=== PATIENT | male | born 1980 | race Caucasian/White ===

== ENCOUNTER → 2016-11-15 | Outpatient (CLI) | payer OTHER ==
--- NOTE | 2016-11-15 11:24 | KCIC ---
PROCEDURE MR of the left knee HISTORY Left knee pain and swelling for 1 month. No known injury. TECHNIQUE Routine multiplanar sequences are obtained. COMPARISON None FINDINGS No evidence of a medial meniscal tear. No evidence of a lateral meniscal tear. Anterior and posterior cruciate ligaments are intact. Medial collateral ligament is intact. Iliotibial band unremarkable. Fibular collateral ligament, biceps femoris tendon and popliteus tendon are intact. The extensor mechanism is intact. Trace joint effusion. No acute articular cartilage defect. No evidence of osteochondral loose body. Subcutaneous fluid and edema along the anterior knee, centered at the patellar tendon. No dominant organized fluid collection is seen. No bone lesion or acute fracture. IMPRESSION 1. No meniscal tear or internal derangement. 2. Moderate prepatellar fluid and edema with swelling, consider bursitis, hematoma or nonspecific inflammatory etiology, depending on clinical correlation. Electronically signed by: Flakito Landis MD (Nov 15, 2016 11:23:41)
== END | disposition home or self-care (01) ==
LOC: KCIC MRI 10:00
PROVIDERS: ATTEND Family Medicine
DX: M25.562 Pain in left knee (principal); M25.461 Effusion, right knee
CPT/HCPCS: 73721

== ENCOUNTER → 2020-04-13 | Outpatient (CLI) | payer OTHER ==
[~2020-04-13] MED LIST: APIX2.5T PO; HYDR-3165 PO; IBUP-1060 PO
== END | disposition home or self-care (01) ==
LOC: LAB 14:49
PROVIDERS: ATTEND Orthopaedic Surgery
DX: Z01.812 Encounter for preprocedural laboratory examination (principal); Z20.828 Contact with and (suspected) exposure to other viral communicable diseases
CPT/HCPCS: 87426; U0003

== ENCOUNTER 2020-04-14 07:28 | Day surgery (SDC) | payer OTHER ==
[~2020-04-14] VITALS: Ht 184.2 cm; Wt 99.3 kg
[~2020-04-14 07:28] MED LIST changes: -APIX2.5T PO; -HYDR-3165 PO; +IV RINGERS,LACTATED 1000ML 1,000 ML IV SCH
[2020-04-14] MEDS ORDERED: fentaNYL PF VIAL 100 MCG/2 ML VIAL IV PRN ×2 (07:30)
[2020-04-14] MEDS ORDERED: PROCHLORPERAZINE 10 MG/2 ML VIAL. IV PRN (07:30)
[2020-04-14] MEDS ORDERED: ONDANSETRON PF 4 MG/2 ML VIAL. IV PRN (07:30)
[2020-04-14] MEDS ORDERED: HYDROmorphone 2 MG/ML VIAL IV PRN (07:30)
[2020-04-14] MEDS ORDERED: MORPHINE SULFATE 2 MG/ML VIAL. IV PRN (07:30)
[2020-04-14] MEDS ORDERED: LIDOCAINE 1% PF 2 ML VIAL. ID PRN (07:30)
[2020-04-14] MEDS ORDERED: DEXAMETHASONE SOD PHOS 4 MG/ML VIAL ONE (08:18)
[2020-04-14] MEDS ORDERED: SEVOFLURANE 61 TO 120 MINUTES. IH ONE (08:18)
[2020-04-14] MEDS ORDERED: LIDOCAINE 2% PF 5 ML VIAL. ONE (08:18)
[2020-04-14] MEDS ORDERED: ONDANSETRON PF 4 MG/2 ML VIAL. ONE (08:18)
[2020-04-14] MEDS ORDERED: MIDAZOLAM HCL/PF 2 MG/2 ML VIAL. ONE (08:18)
[2020-04-14] MEDS ORDERED: fentaNYL PF VIAL 100 MCG/2 ML VIAL ONE (08:18)
[2020-04-14] MEDS ORDERED: PROPOFOL 10 MG/ML (20ML) VIAL. IV ONE (08:18)
[2020-04-14] MEDS ORDERED: BUPIVACAINE-EPI 0.5%-1:200000 MPF 30 ML VIAL. ONE (09:19)
[2020-04-14] MEDS ORDERED: HYDR-3165 PO (10:09)
--- NOTE | 2020-04-14 10:10 | DISCH ---
DISCHARGE INSTRUCTIONS Condition on Discharge Condition on Discharge: Stable Activity After Discharge Activity Instructions for Disc: Progressive ambulation Weight Bearing Status after Di: As tolerated Diet after Discharge Diet after Discharge: Regular Wound Incision Care Wound/Incision Care: Change dressing (Remove dressing in 2 days may then shower no soaking in tub or pool until sutures removed) Contacting the after DC Call your doctor for: Concerns you may have Follow-Up Follow up with: Dr. Yee 10 days STU YEE MD Apr 14, 2020 10:10
[2020-04-14] MEDS ORDERED: APIX2.5T PO (10:11)
[2020-04-14] MEDS ORDERED: HYDROcodone/APAP 7.5/325MG 1 TAB TABLET PO ONE (11:00)
[2020-04-14 12:00] VITALS: BP 139/77
--- NOTE | 2020-04-14 12:15 | PDOC4 ---
Operative Note Operative Note Date of surgery: 04/14/2020 Preoperative diagnosis: Left knee medial meniscus tear Postoperative diagnosis: Same with displaceable posterior horn left medial meniscus tear and medial parapatellar plica Operative procedure: Left knee arthroscopy partial medial meniscectomy and excision medial parapatellar plica Surgeon: Joselito Anesthesia: General Estimated blood loss: 5 cc Complications: None Operative indications: Please see my preoperative clinic note for detailed operative indications and note that we had covered the possibility of continued pain infection blood clots nerve or blood vessel damage medical or other anesthetic complications among others. We talked about postoperative Eliquis due to his history of previous DVT and pulmonary embolism for a planned 2-week course postoperatively and specifically what to watch out for in terms of postoperative swelling and symptoms etc. All his questions were answered he agrees to proceed with surgical evaluation and treatment. Operative text: Patient was identified procedure verified patient placed in the supine position on the operating table. After adequate amounts of general anesthesia were administered the left lower extremity was prepped and draped in standard sterile fashion with a thigh tourniquet. After timeout was performed patient procedure identified and verified, the left lower extremity was exsanguinated by Esmarch bandage tourniquet inflated to 300 mmHg a lateral portal was established medial portal established using spinal needle localization and the knee joint was systematically examined. Patellofemoral articulation was noted to be in good condition he did have a medial patellar plica which was rubbing on the medial femoral condyle without significant irritation noted. He did have a displaceable tear posterior horn of the medial meniscus parrot-beak in nature which was trimmed back to stable tissue using the arthroscopic punch and shaver all loose fragments were removed and he was probed to be back to stable tissue radiusing to avoid any stress concentrations. ACL was probed and found to be intact as was the lateral meniscus. The knee was again toward to ensure no loose bodies present and good patellofemoral tracking. Fluid was removed from the knee joint portals closed with nylon suture portal areas and fat pad was injected with half percent Marcaine with epinephrine total of 20 cc. Sterile dressings were applied toes are noted to be warm pink following deflation of the tourniquet patient was returned to recovery room in stable condition having tolerated procedure well STU CALZADA MD Apr 14, 2020 12:15
== END 2020-04-14 12:10 | disposition home or self-care (01) ==
LOC: SURG 07:28
PROVIDERS: ATTEND Orthopaedic Surgery
DX: S83.242A Other tear of medial meniscus, current injury, left knee, initial encounter (principal); M67.52 Plica syndrome, left knee; Z88.2 Allergy status to sulfonamides; Z79.899 Other long term (current) drug therapy; X58.XXXA Exposure to other specified factors, initial encounter; Y93.89 Activity, other specified; Y92.89 Other specified places as the place of occurrence of the external cause; Y99.8 Other external cause status
CPT/HCPCS: 29881; C1782; J0690; J1100; J2250; J2405; J2704; J3010; J7120

== ENCOUNTER → 2020-09-18 | Outpatient (CLI) | payer OTHER ==
[~2020-09-18] MED LIST changes: +APIX2.5T PO; +HYDR-3165 PO; -IV RINGERS,LACTATED 1000ML 1,000 ML IV SCH
--- NOTE | 2020-09-18 10:53 | KCIC ---
STUDY: MRI of the left knee without contrast INDICATION: Acute tear of the left knee lateral meniscus. New onset left knee pain 3 weeks prior. Stephie bennett reported in April 2020. COMPARISON: 11/15/2016 TECHNIQUE: Multiplanar MR imaging of the left knee performed without the use of intravenous or intra- articular contrast. FINDINGS: Menisci: The lateral meniscus is intact. Thin oblique/undersurface defect at the medial meniscus post erior horn extending to the posterior aspect of the body segment. Cruciate ligaments: Intact. Collateral ligaments: Intact. Tendons: Intact. Cartilage: Patellofemoral: No high-grade or full-thickness chondral defect. Hypointense signal at the far inferi or aspect of the trochlear groove is favored artifactual. Lateral compartment: No high-grade or full-thickness chondral defect. Medial compartment: Partial thickness chondrosis at the proximal nonweightbearing medial femoral cond yle overlying the medial meniscus posterior horn. Bones: Mild subchondral edema subjacent to the medial femoral condyle chondral loss no acute fracture or focally aggressive marrow signal abnormality. Miscellaneous: Small amount of knee joint fluid. Presents identified prepatellar edema/complex fluid has resolved. IMPRESSION: 1. The lateral meniscus is intact, as queried. 2. Fluid signal oblique/undersurface defect centered within the medial meniscus posterior horn to th e posterior body/horn junction. The degree of T2 signal elevation within the defect suggests a tear h owever the patient reports surgery in 04/2020. Correlate with the surgical report to help determine if this represent a known/repaired abnormality. 3. Localized partial thickness chondrosis with mild subjacent marrow edema at the proximal nonweight bearing medial femoral condyle overlying the medial meniscus posterior horn. 4. Resolved manifestations of prepatellar bursitis seen in 2016. Electronically signed by: JETHRO MONZON MD (09/18/2020 10:50 AM) [id number]
== END ==
LOC: KCIC MRI 08:18
PROVIDERS: ATTEND Physician Assistant
DX: M25.562 Pain in left knee (principal)
CPT/HCPCS: 73721

== ENCOUNTER → 2020-10-24 | Outpatient (CLI) | payer OTHER | LOC: LAB 13:57 | PROVIDERS: ATTEND Orthopaedic Surgery | DX: Z01.812 Encounter for preprocedural laboratory examination (principal); S83.242D Other tear of medial meniscus, current injury, left knee, subsequent encounter; X58.XXXD Exposure to other specified factors, subsequent encounter; Z20.822 Contact with and (suspected) exposure to COVID-19 | CPT/HCPCS: U0003 ==

== ENCOUNTER 2020-10-27 07:50 | Day surgery (SDC) | payer OTHER ==
[~2020-10-27] VITALS: Ht 184.2 cm; Wt 103.2 kg
[2020-10-27] MEDS ORDERED: IV RINGERS,LACTATED 1000ML 1,000 ML IV SCH ×2 (08:15→11:45)
[2020-10-27] MEDS ORDERED: ONDANSETRON PF 4 MG/2 ML VIAL. ONE (09:31)
[2020-10-27] MEDS ORDERED: fentaNYL PF VIAL 100 MCG/2 ML VIAL ONE ×2 (09:31→11:01)
[2020-10-27] MEDS ORDERED: PROPOFOL 10 MG/ML (20ML) VIAL. IV ONE (09:31)
[2020-10-27] MEDS ORDERED: DEXAMETHASONE SOD PHOS 4 MG/ML VIAL ONE (09:31)
[2020-10-27] MEDS ORDERED: LIDOCAINE 2% PF 5 ML VIAL. ONE (09:31)
[2020-10-27] MEDS ORDERED: MIDAZOLAM HCL/PF 2 MG/2 ML VIAL. ONE (09:32)
[2020-10-27] MEDS ORDERED: BUPIVACAINE-EPI 0.5%-1:200000 MPF 30 ML VIAL. ONE (09:52)
[2020-10-27] MEDS ORDERED: MORPHINE SULFATE 2 MG/ML VIAL. ONE (11:33)
[2020-10-27] MEDS ORDERED: PROCHLORPERAZINE 10 MG/2 ML VIAL. ONE (11:34)
--- NOTE | 2020-10-27 11:36 | DISCH ---
DISCHARGE INSTRUCTIONS Condition on Discharge Condition on Discharge: Stable Activity After Discharge Activity Instructions for Disc: Progressive ambulation, Other, see below (Avoid knee flexion past 90 degrees) Weight Bearing Status after Di: As tolerated Diet after Discharge Diet after Discharge: Regular Wound Incision Care Wound/Incision Care: Ice to area for comfort, Keep wound elevated, Change dressing (May remove dressing in 2 days may then shower no soaking until sutures removed) Contacting the DRCarol after DC Call your doctor for: Concerns you may have Follow-Up Follow up with: Dr. Yee or Lefty 10 days postop STU YEE MD Oct 27, 2020 11:35
[2020-10-27] MEDS ORDERED: fentaNYL PF VIAL 100 MCG/2 ML VIAL IVP PRN ×2 (11:45)
[2020-10-27] MEDS ORDERED: MORPHINE SULFATE 2 MG/ML VIAL. IVP PRN (11:45)
[2020-10-27] MEDS ORDERED: HYDROmorphone 2 MG/ML VIAL IVP PRN (11:45)
[2020-10-27] MEDS ORDERED: PROCHLORPERAZINE 10 MG/2 ML VIAL. IVP PRN (11:45)
--- NOTE | 2020-10-27 11:55 | PDOC4 ---
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 MRI had shown a tear in the posterior horn area medial meniscus which had a horizontal component more peripherally. He did have some chondromalacia on weightbearing surface medial femoral condyle as well on MRI. I had gone over with him the nonoperative and operative treatment options and if the meniscus tissue was unstable and not amenable to repair we had planned on removing the damaged portion of the meniscus. On the other hand if it was indeed peripheral and repairable in nature we would like to preserve as much meniscal tissue as possible and we talked about the possibility of repair as well and addressing any other pathological conditions at the same time. The possibility of nonhealing continued pain nerve or blood vessel damage infection medical or other anesthetic complications among others he agrees to proceed with surgical evaluation and treatment. Operative text: Patient was identified procedure verified patient placed in the supine position on the operating table. After adequate amounts of general anesthesia were administered the left lower extremity was prepped and draped in standard sterile fashion with a thigh tourniquet. After timeout was performed patient procedure identified and verified the left lower extremity was exsanguinated Esmarch bandage tourniquet inflated to 300 mmHg lateral portal was established medial portal established using spinal needle localization and the knee joint was systematically examined. Patellofemoral reticulation was noted to be in excellent condition no loose bodies noted in the suprapatellar pouch or gutters. ACL and lateral meniscus were probed and found to be intact. Medial meniscus had a small radial defect at the free edge which was trimmed back to stable tissue and radius. He also had a horizontal peripheral component in the posterior horn area as well as an area over the lateral weightbearing surface of the medial femoral condyle which had a chondral flap tear which was trimmed back to stable condition but the defect was noted to be full-thickness in nature and I elected to perform microfracture with the microfracture awls. Good bleeding was later witnessed from the microfracture sites. The peripheral portion of the horizontal tear was trephinated to improve blood flow with a spinal needle and rasped to do the same and create a good healing tissue bed. A total of 2 jugger stitches were placed in a vertical mattress fashion approximately 1/2 cm apart to secure the horizontal portion of the meniscus and excellent apposition was noted and probed to be in stable condition. Good bleeding was noted from the microfracture site and meniscal repair site on evacuation of the arthroscopic fluid. Portals were closed with nylon suture sterile dressings were applied patient was returned to recovery room in stable condition having tolerated procedure well. Sarath tohmpson was present for the procedure assisted in patient positioning prepping draping retraction closure and dressings STU CALZADA MD Oct 27, 2020 11:55
[2020-10-27] MEDS ORDERED: HYDROcodone/APAP 7.5/325MG 1 TAB TABLET PO ONE (12:00)
[2020-10-27 12:35] VITALS: BP 138/70
== END 2020-10-27 13:43 | disposition home or self-care (01) ==
LOC: SURG 07:50
PROVIDERS: ATTEND Orthopaedic Surgery
DX: S83.242A Other tear of medial meniscus, current injury, left knee, initial encounter (principal); M94.262 Chondromalacia, left knee; G47.30 Sleep apnea, unspecified; M19.90 Unspecified osteoarthritis, unspecified site; Z88.2 Allergy status to sulfonamides; Z79.899 Other long term (current) drug therapy; Z98.890 Other specified postprocedural states; X58.XXXA Exposure to other specified factors, initial encounter; Y93.89 Activity, other specified; Y92.89 Other specified places as the place of occurrence of the external cause; Y99.8 Other external cause status
CPT/HCPCS: 29881; 29882; A4930; C1713; J0690; J0780; J1100; J2250; J2270; J2405; J2704; J3010